=== PATIENT | female | born 1935 | race African-American/Black ===

== ENCOUNTER 2019-11-20 09:38 | Outpatient (CLI) | payer MEDICARE, BC, SELFPAY ==
--- NOTE | ~2019-11-20 | US_ITS ---
EXAMINATION: US thyroid DATE: 11/20/2019 10:22 INDICATION: Hyperthyroidism TECHNIQUE: Multiple ultrasound images of the thyroid were obtained. COMPARISON: 05/09/2017 FINDINGS: The right thyroid lobe measures 6.0 x 3.1 x 2.0 cm. The left thyroid lobe measures 7.5 x 3.5 x 2.9 c m. The thyroid isthmus measures 5 mm in thickness. There are multiple hypoechoic solid or predominant ly solid nodules which are wider than tall with well-defined margins and without suspicious echogenic foci (TI-RADS 4, moderately suspicious , FNA if >=1.5 cm, annual followup is >1 cm) which are scatte red throughout both thyroid lobes. These are generally decreased in size since the prior study the ma jority less than 1 cm in maximal diameter. The largest in the left thyroid lobe measures 1.8 x 1.3 x 0.9 cm. The next largest include a 1.4 cm nodule in the left thyroid lobe which may be more cystic th an solid and 1.2 cm and 1.1 cm nodules in the right thyroid lobe. There is coarsened echotexture an i ncreased vascular flow throughout the thyroid. IMPRESSION: 1. Multinodular goiter with multiple nodules which appear smaller than on the prior study with now on ly a single 1.8 cm TI RADS 4 nodules in the left thyroid meeting criteria for ultrasound-guided biops y. Reviewed, dictated and finalized at location A. IMPRESSION: 1. Multinodular goiter with multiple nodules which appear smaller than on the p rior study with now only a single 1.8 cm TI RADS 4 nodules in the left thyroid meeting criteria for ultrasound-guided biopsy.
== END 2019-11-20 09:39 | disposition home or self-care (01) ==
PROVIDERS: PCP Student in an Organized Health Care Education/Training Program; Visit Provider Student in an Organized Health Care Education/Training Program
DX: E05.90 Thyrotoxicosis, unspecified without thyrotoxic crisis or storm (principal); E04.2 Nontoxic multinodular goiter
CPT/HCPCS: 76536

== ENCOUNTER 2020-03-05 12:36 | Outpatient (CLI) | payer MEDICARE, BC, SELFPAY ==
--- NOTE | ~2020-03-05 | US_ITS ---
EXAMINATION: US venous doppler [facility] DATE: 03/05/2020 13:28 INDICATION: Lower limb swelling and pain, history of deep venous thrombosis TECHNIQUE: Mishra scale images without and with compression and Doppler images of the bilateral lower e xtremity veins were obtained. COMPARISON: 03/22/2018 FINDINGS: The right common femoral vein, profunda femoral vein, femoral vein, popliteal vein, peroneal trunk, p osterior tibial veins, and greater saphenous vein are patent. The left common femoral vein, profunda femoral vein, femoral vein, popliteal vein, peroneal trunk, po sterior tibial veins, and greater saphenous vein are patent. A 4.1 x 2.2 cm Galicia's cyst is noted in the left popliteal fossa. IMPRESSION: 1. Patent bilateral lower extremity veins. No evidence of deep venous thrombosis. 2. Left Galicia's cyst. Reviewed, dictated and finalized at location A. SQL DEVELOPER IMPRESSION: 1. Patent bilateral lower extremity veins. No evidence of deep venous thrombosi s. 2. Left Galicia's cyst.
== END 2020-03-05 12:37 | disposition home or self-care (01) ==
PROVIDERS: PCP Student in an Organized Health Care Education/Training Program; Visit Provider Student in an Organized Health Care Education/Training Program
DX: R22.42 Localized swelling, mass and lump, left lower limb (principal); M79.89 Other specified soft tissue disorders; M71.22 Synovial cyst of popliteal space [Baker], left knee
CPT/HCPCS: 93970

== ENCOUNTER 2020-04-30 10:51 | Emergency (ER) | payer MEDICARE, BC, SELFPAY ==
[2020-04-30] VITALS (7 sets, daily range): BP systolic 128–189; BP diastolic 50–108; PULSE 73–84; RESP 14–22; TEMP 36.9; O2SAT 96–100
--- NOTE | ~2020-04-30 | XR_ITS ---
EXAMINATION: XR chest 1V EXAM DATE: 04/30/2020 12:38 INDICATION: Shortness of breath. TECHNIQUE: Portable AP frontal chest x-ray was obtained. Comparison is made to prior examination from 03/18/2019. FINDINGS: The lungs are clear. There are no pleural effusions. Cardiac silhouette is prominent but magnified on this AP technique. There is no pneumothorax suspected. The bones and soft tissues are unremarkable. IMPRESSION: No acute cardiopulmonary findings. Reviewed, dictated and finalized at location B. NICAL PROPOSAL WRITER
--- NOTE | ~2020-04-30 | XR_ITS ---
EXAMINATION: XR hip LT 2V w AP pelvis EXAM DATE: 04/30/2020 12:38 INDICATION: No known recent injury provided at this time. Pain of the left hip. TECHNIQUE: Left hip frontal, 'frog leg' projections for interpretation. Frontal projection pelvis. There is no prior study for comparison. FINDINGS: Smooth left hip femoral head contour, no radiographic evidence of avascular necrosis. The re is moderate loss of the left hip joint space, mild to moderate bony productive changes. Most likel y primary osteoarthritis. There is right hip replacement. Pelvis is unremarkable. IMPRESSION: Moderate left hip arthritis. Reviewed, dictated and finalized at location B. OMER SUCCESS DIRECTOR
--- NOTE | ~2020-04-30 | CT_ITS ---
EXAMINATION: CT abdomen pelvis w con DATE: 04/30/2020 16:43 INDICATION: Lower abdominal pain TECHNIQUE: Computed tomography (CT) of the abdomen and pelvis was performed with 100 cc Omnipaque 350 intravenous contrast. The dose-length product was 1286.52 mGy-cm. Automated exposure control and ite rative reconstruction technique were employed. COMPARISON: None. FINDINGS: Cardiomegaly. No significant pleural or pericardial effusion. Moderate size hiatal hernia. There is atherosclerosis. There are calcified granulomas of the spleen. Tiny fat-containing lesion of the right hepatic lobe, likely benign. Gallbladder is present. The pancreas, adrenal glands and left kidney are unremarkable. There is a 1.8 cm right renal cyst. Colonic diverticulosis without evidence for diverticulitis. Gallbladder is present. Small fat-containing umbilical hernia. There is a right hip arthroplasty. Severe lumbar spondylosis. No acute osseous abnormality. No free air or free fluid. Normal appendix. No bowel obstruction. No abnormal pelvic masses or fluid collections. No evidence f or aortic aneurysm. No lymphadenopathy. IMPRESSION: 1. No acute abdominal abnormality. 2: Moderate size hiatal hernia. 3: Cardiomegaly. Reviewed, dictated and finalized at location A. IDENT AND CMO
--- NOTE | 2020-04-30 11:35 | ECG_ITS ---
Measurements Intervals [place] Rate: 71 P: 38 DE: 158 QRS: -22 QRSD: 91 T: 47 QT: 381 QTc: 417 Interpretive Statements SINUS RHYTHM POSSIBLE LEFT ATRIAL ENLARGEMENT BORDERLINE ECG Electronically Signed On 04-30-2020 14:26:42 OBSTETRICS TECHNICIAN by Terry Solomon D.O.
--- NOTE | 2020-04-30 11:36 | ED.GENADULT ---
HPI - General Adult General Chief complaint: Extremity Problem,Nontraumatic Stated complaint: Possible Blood Clots Time Seen by Provider: 04/30/20 11:27 Source: patient Mode of arrival: ambulatory Limitations: no limitations History of Present Illness HPI narrative: This is an 85 year old female who presents for evaluation of shortness of breath. She states she was walking slowly into her doctor's office because her knees were hurting. He noticed that she was working hard to breath so he referred her to ER. Patient states she has not felt well for few days. She complains of shortness of breath. She denies chest pain, cough or fever. She states she just does not feel well. She states she is walking slow because she does not feel well. she reports bilateral chronic ankle swelling that is not that bad today. She had an appointment with PCP today , and he referred her to ED for evaluation. She mentioned left groin pain to triage nurse but that is not the main reason she came to ER today. She reports groin pain has been present over the past week and she denies trauma. She denies melena or noticeable blood loss. Related Data Home Medications Medication Instructions Recorded Confirmed multivitamin 1 tablet PO DAILY 02/06/19 03/26/19 Allergies Allergy/AdvReac Type Severity Reaction Status Date / Time No Known Allergies Allergy Verified 04/30/20 11:34 Review of Systems Review of Systems: All systems reviewed & are unremarkable except as noted in HPI and below Constitutional: Constitutional: Denies chills, Reports fatigue and Denies fever(s) Cardiovascular: Cardiovascular: Denies chest pain Respiratory: Respiratory: Denies cough and Reports dyspnea Gastrointestinal: Gastrointestinal: Denies abdominal pain, Denies diarrhea, Denies nausea and Denies vomiting Neurologic: Denies headache(s), Denies focal weakness and Denies numbness PMFSH Past Medical History Medical History (Updated 04/30/20 @ 17:12 by Karen aM MD) Anemia Arthritis Dizziness DVT (deep venous thrombosis) H/O: HTN (hypertension) History of GI bleed Hx of fracture of hip PE (pulmonary thromboembolism) Surgical History Surgical History History of hip surgery History of hysterectomy History of hysterectomy History of total hip replacement Family History Family History Father Family history of transient ischemic attacks Patient's father is Cerebrovascular accident Mother Patient's mother is Other Family history of arthritis Hypertension Social History Social History (Updated 12/25/19 @ 09:49 by Pam Tim [facility]) Smoking status: Former smoker Smoking end date: 02/20/02 Alcohol intake: never Substance use: never Gender identity (if verbalized by the patient): Female Exam Narrative: Exam Narrative: GENERAL: Well-appearing, well-nourished, and in no acute distress. HEAD: Normocephalic, atraumatic EYES: PERRLA and EOMI, conjunctiva clear without discharge THROAT:Mucous membranes moist, Oropharynx normal without erythema, exudate, peritonsillar swelling or fluctuance NECK: Supple, without lymphadenopathy or mass RESPIRATORY: No respiratory distress, Airway patent, Respirations non-labored, Clear to auscultation without rales, rhonchi or wheeze HEART: Regular rate and rhythm. No murmur heard. Normal peripheral pulses. ABDOMEN: Soft,LLQ tenderness, nondistended, normal active bowel sounds. No masses. No rebound or guarding, No organomegaly. EXTREMITIES: No edema, normal strength with full range of motion. SKIN: Warm, dry, normal color without rash NEURO: Alert and oriented x3. CN 2-12 grossly intact. No focal deficits. PSYCH: Normal mood and affect. Course Reevaluation(s) Reevaluation #1: I reviewed with patient labs and imaging. Her d di
[2020-04-30 12:10] LABS: Basophils Percent Auto 0.3 % (0.2-1.2); Eosinophils Absolute Auto 0.1 K/mm3 (0-0.3); Eosinophils Percent Auto 1.9 % (0-4.4); Hematocrit 32.3 % (37.0-47.0); Hemoglobin 10.2 g/dL (12.0-15.0); Immature Granulocyte Absolute 0.01 K/mm3 (0.00-0.031); Immature Granulocyte Percent A 0.2 % (0-0.5); Lymphocytes Absolute Auto 2.01 K/mm3 (0.9-3.2); Lymphocytes Percent Auto 32.4 % (18.3-44.2); Mean Corpuscular HGB Conc 31.6 g/dl (32-36); Mean Corpuscular Hemoglobin 27.9 pg (26-34); Mean Corpuscular Volume 88.5 fl (80-100); Mean Platelet Volume 10.9 fl (7.4-10.4); Monocytes Absolute Auto 0.9 K/mm3 (0.1-0.6); Monocytes Percent Auto 15.2 % (2.6-8.5); Neutrophils Absolute Auto 3.1 K/mm3 (1.3-6.7); Platelet Count Result 250 k/mm3 (150-375); Red Blood Count 3.65 M/mm3 (4.2-5.4); Red Cell Distribution Width 14.3 % (11.5-14.5); White Blood Count 6.2 K/mm3 (4.5-10.0)
--- NOTE | 2020-04-30 12:19 | PC.NURSE ---
Patient unable to urinate at this time, declines straight cath and reports that she only drank tea today really early this morning
[2020-04-30 12:23] LABS: INR 1.1; Prothrombin Time 14.4 Seconds (11.1-14.7)
[2020-04-30 12:24] LABS: Partial Thromboplastin Time 25.8 SECONDS (22.3-36.8)
--- NOTE | 2020-04-30 14:00 | PC.NURSE ---
patient's green top redrawn and sent to lab.
[2020-04-30 14:30] LABS: Add Urine Microscopic? YES; Appearance Urine Cloudy (Clear); Bacteria Urine Trace /hpf; Bilirubin Urine Negative (Negative); Blood Urine Negative (Negative); Color Urine Yellow (Yellow); Glucose Urine UA Negative (Negative); Hyaline Casts Urine 15-19 /lpf; Ketones Urine Negative (Negative); Leukocyte Esterase Ur 2+ LEU/UL (Negative); Mucus Urine Rare /lpf; Nitrate Urine Negative (Negative); Protein Urine Negative (Negative); Specific Grav Ur 1.014 (1.001-1.035); Squamous Epithelial Cell Urine Many /hpf (Few); Urobilinogen Urine Negative mg/dL (<2.0)
--- NOTE | 2020-04-30 14:30 | PC.NURSE ---
Patient's green top redrawn due to hemolyzed sample, phlebotomy called to draw blood
--- NOTE | 2020-04-30 14:45 | PC.NURSE ---
Phlebotomy at bedside to draw green top due to multiple past hemolyzed samples .
[2020-04-30 15:46] LABS: Alanine Aminotransferase 7 U/L (4-35); Albumin Level 3.4 g/dL (3.5-5.1); Alkaline Phosphatase 96 U/L (38-126); Anion Gap 4 mmol/L (8-16); Aspartate Amino Transferase 20 U/L (14-36); Bilirubin,Total 0.2 mg/dL (0.2-1.3); Blood Urea Nitrogen 21 mg/dL (7-17); Calcium 9.3 mg/dL (8.4-10.2); Carbon Dioxide 29 mmol/L (22-30); Chloride 106 mmol/L (98-107); Estimated CRCL calculation 42 ml/min; Estimated Glomerular Filt Rate 57; Glucose 94 mg/dL (65-105); Magnesium 1.6 mg/dL (1.6-2.3); Potassium 4.1 mmol/L (3.4-5.0); Sodium 139 mmol/L (137-145)
[2020-04-30 16:04] LABS: NT Pro B Type Natriuretic Pept 319 PG/ML (5-100); Troponin I < 0.012 ng/mL (0.000-0.034)
== END 2020-04-30 17:22 | disposition home or self-care (01) ==
PROVIDERS: Emergency Provider General Practice; PCP Student in an Organized Health Care Education/Training Program
DX: R53.1 Weakness (principal); R10.32 Left lower quadrant pain; N39.0 Urinary tract infection, site not specified; I10 Essential (primary) hypertension; D64.9 Anemia, unspecified; M16.12 Unilateral primary osteoarthritis, left hip; Z96.641 Presence of right artificial hip joint; Z86.73 Personal history of transient ischemic attack (TIA), and cerebral infarction without residual deficits; Z86.711 Personal history of pulmonary embolism; Z87.891 Personal history of nicotine dependence; Z79.01 Long term (current) use of anticoagulants; K44.9 Diaphragmatic hernia without obstruction or gangrene; I51.7 Cardiomegaly; R94.31 Abnormal electrocardiogram [ECG] [EKG]
CPT/HCPCS: 36415; 71045; 73502; 74177; 80053; 81001; 83735; 83880; 84484; 85025; 85380; 85610; 85730; 93005; 99284; Q9967

== ENCOUNTER 2020-06-16 13:15 | Outpatient (CLI) | payer MEDICARE, BC, SELFPAY ==
[2020-06-16 16:17] LABS: Basophils Percent Auto 0.2 % (0.2-1.2); Eosinophils Absolute Auto 0.1 K/mm3 (0-0.3); Eosinophils Percent Auto 1.1 % (0-4.4); Hematocrit 34.5 % (37.0-47.0); Hemoglobin 10.7 g/dL (12.0-15.0); Immature Granulocyte Absolute 0.02 K/mm3 (0.00-0.031); Immature Granulocyte Percent A 0.2 % (0-0.5); Lymphocytes Absolute Auto 2.82 K/mm3 (0.9-3.2); Lymphocytes Percent Auto 29.7 % (18.3-44.2); Mean Corpuscular Hemoglobin 26.8 pg (26-34); Mean Corpuscular Volume 86.3 fl (80-100); Monocytes Absolute Auto 1.5 K/mm3 (0.1-0.6); Monocytes Percent Auto 16.2 % (2.6-8.5); Neutrophils Percent Auto 52.6 % (45.5-73.1); Platelet Count Result 305 k/mm3 (150-375); Red Cell Distribution Width 14.2 % (11.5-14.5); White Blood Count 9.5 K/mm3 (4.5-10.0)
[2020-06-16 16:23] LABS: Alanine Aminotransferase 8 U/L (4-35); Albumin Level 3.6 g/dL (3.5-5.1); Alkaline Phosphatase 97 U/L (38-126); Anion Gap 4 mmol/L (8-16); Aspartate Amino Transferase 17 U/L (14-36); Bilirubin,Total 0.4 mg/dL (0.2-1.3); Blood Urea Nitrogen 28 mg/dL (7-17); Calcium 9.5 mg/dL (8.4-10.2); Carbon Dioxide 32 mmol/L (22-30); Chloride 102 mmol/L (98-107); Cholesterol 160 mg/dL (0-200); Estimated Glomerular Filt Rate 57; Glucose 101 mg/dL (65-105); HDL Direct 94 mg/dL; Potassium 4.3 mmol/L (3.4-5.0); Sodium 138 mmol/L (137-145); Triglycerides 87 mg/dL (<150); Uric Acid 6.5 mg/dL (2.5-7.5)
[2020-06-16 16:34] LABS: LDL Cholesterol Direct 51 mg/dL
[2020-06-16 16:44] LABS: Hemoglobin A1C 6.1 % (<5.7)
[2020-06-16 16:54] LABS: Thyroid Stimulating Hormone Reflex < 0.015 uIU/mL (0.465-4.68)
[2020-06-16 17:35] LABS: Free T4 Free Thyroxine Reflex 1.42 ng/dL (0.78-2.19)
[2020-06-16 19:25] LABS: Total Triiodothyronine (T3) 1.29 NG/ML (0.97-1.69)
== END 2020-06-16 13:16 | disposition home or self-care (01) ==
LOC: ANHWCLAB 13:31
PROVIDERS: PCP Student in an Organized Health Care Education/Training Program; Visit Provider Student in an Organized Health Care Education/Training Program
DX: R73.09 Other abnormal glucose (principal); I50.9 Heart failure, unspecified; Z13.0 Encounter for screening for diseases of the blood and blood-forming organs and certain disorders involving the immune mechanism; Z13.220 Encounter for screening for lipoid disorders; Z13.228 Encounter for screening for other metabolic disorders; Z13.29 Encounter for screening for other suspected endocrine disorder
CPT/HCPCS: 36415; 80053; 80061; 83036; 84439; 84443; 84480; 84550; 85025

== ENCOUNTER 2020-07-02 12:53 | Emergency (ER) | payer MEDICARE, BC, SELFPAY ==
--- NOTE | ~2020-07-02 | XR_ITS ---
EXAMINATION: XR knee LT 3V DATE: 07/02/2020 14:02 INDICATION: Left knee injury. TECHNIQUE: 3 views of left knee were obtained. COMPARISON: Left knee radiographs 03/11/2011 FINDINGS: There is varus angulation at the knee. No fracture. There is severe osteoarthritis of media l and patellofemoral compartments and moderate osteoarthritis of lateral compartment. No knee joint e ffusion. IMPRESSION: 1. Severe left knee osteoarthritis. Reviewed, dictated and finalized at location B.
--- NOTE | ~2020-07-02 | CT_ITS ---
EXAMINATION: CT brain wo con DATE: 07/02/2020 14:15 INDICATION: Fall. Head injury. No loss of consciousness. TECHNIQUE: Computed tomography (CT) of the head was performed without intravenous contrast. The mA wa s adjusted according to patient size. Iterative reconstruction technique was employed. Exam dose: 60 5.33 mGy-cm total exam DLP. COMPARISON: 03/18/2019 CT brain FINDINGS: No intracranial mass lesion or hemorrhage or cerebrovascular accident is detected. No midli ne shift or mass effect effect. No subdural or epidural hematoma. Bilateral carotid siphon internal carotid artery calcifications. Nonspecific diminished attenuation o f the subcortical and periventricular cerebral white matter, likely due to chronic small vessel ische giuliano changes. There is left frontal cephalohematoma. No intracranial coup or contrecoup injury is detected. No fracture or bone destruction of the cranial vault. IMPRESSION: Left frontal cephalohematoma; no skull fracture or acute intracranial finding Cerebral atherosclerosis and chronic small vessel ischemic changes of the cerebral white matter Reviewed, dictated and finalized at Location A. Reviewed, dictated and finalized at location A. IMPRESSION: Left frontal cephalohematoma; no skull fracture or acute intracran ial finding Cerebral atherosclerosis and chronic small vessel ischemic changes of the cereb ral white matter
--- NOTE | ~2020-07-02 | CT_ITS ---
EXAMINATION: CT cervical spine wo con DATE: 07/02/2020 14:16 INDICATION: Head injury post fall TECHNIQUE: Computed tomography (CT) of the cervical spine was performed without intravenous contrast. Automated exposure control and iterative reconstruction technique were employed. The dose-length pro duct was 439.55 mGy-cm. COMPARISON: None FINDINGS: 1 mm retrolisthesis C2 on C3 and 2 mm retrolisthesis C3 on C4. Severe osteoarthritis at the atlantoax ial articulation with calcified pannus surrounding the dens. Vertebral body heights are normal. No fr acture. Moderate disc height loss at T2 C3, C3-C4, C5-C6 and C6-C7 and mild disc height loss at C4-C5 . Schmorl's nodes along both sides of the C3-C4 disc space. Goiter. Cervical soft tissues are otherwi se unremarkable. Visualized apices of lungs are clear. The following disc levels are specifically dis cussed: C2-C3: Disc is mildly bulging. There is moderate bilateral uncovertebral joint osteoarthritis. There is mild left and severe right facet joint osteoarthritis. There is mild left neural foraminal stenosi s. There is mild central canal stenosis. C3-C4: Posterior disc osteophyte complex. There is severe bilateral uncovertebral joint osteoarthriti s. There is moderate right and severe left facet joint osteoarthritis. There is mild to moderate left neural foraminal stenosis. There is mild to moderate central canal stenosis measuring 8 mm AP in the mid sagittal plane. C4-C5: Small central disc protrusion. There is mild bilateral uncovertebral joint osteoarthritis. The re is severe bilateral facet joint osteoarthritis. There is mild left neural foraminal stenosis. Ther e is minimal central canal stenosis. C5-C6: Moderate hypertrophic changes with fusion across the bilateral uncovertebral joints as well as bridging posterior osteophytes. There is also fusion across the bilateral facet joints with moderate hypertrophic changes. There is mild bilateral neural foraminal stenosis. There is mild central canal stenosis. C6-C7: Posterior disc osteophyte complex is present. There is moderate bilateral uncovertebral joint osteoarthritis. There is severe bilateral facet joint osteoarthritis. There is mild bilateral neural foraminal stenosis. There is mild central canal stenosis. C7-T1: The disc does not extend beyond the endplate margin. There is minimal bilateral uncovertebral joint osteoarthritis. There is mild right and moderate left facet joint osteoarthritis. There is no n eural foraminal stenosis. There is no central canal stenosis. IMPRESSION: 1. Moderate to severe cervical spondylosis. No acute osseous abnormality. Reviewed, dictated and finalized at location A.
--- NOTE | ~2020-07-02 | XR_ITS ---
EXAMINATION: XR knee RT 3V DATE: 07/02/2020 14:02 INDICATION: Right knee injury. TECHNIQUE: 3 views of right knee were obtained. COMPARISON: Right knee radiographs 03/11/2011 FINDINGS: Bone alignment is normal. No fracture. There is severe osteoarthritis of patellofemoral com partment and moderate osteoarthritis of medial and lateral compartments. No knee joint effusion. IMPRESSION: 1. Severe right knee osteoarthritis. Reviewed, dictated and finalized at location B.
[2020-07-02 13:01] VITALS: BP 158/63; PULSE 80; RESP 16; TEMP 36.8; O2SAT 97
--- NOTE | 2020-07-02 15:49 | ED.FALL ---
HPI - Fall General Chief Complaint: Fall Stated Complaint: FALL HI Time Seen by Provider: 07/02/20 13:07 Source: patient Mode of arrival: ambulatory Limitations: no limitations History of Present Illness HPI Narrative: Patient is an 85 year old female who reports trip and fall after leaving doctor's office. Patient reports dropping papers and attempting to stop them with her foot, she reports reaching town and losing balance. She reports falling hitting head on concrete and bilateral knees. Hematoma noted to left eyebrow. Bruising to bilateral knees per patient. Patient is on Eliquis. She denies LOC, denies dizziness or other complaints prior to fall. complaint: fall Related Data Home Medications Medication Instructions Recorded Confirmed multivitamin 1 tablet PO DAILY 02/06/19 03/26/19 Allergies Allergy/AdvReac Type Severity Reaction Status Date / Time No Known Allergies Allergy Verified 07/02/20 13:04 Review of Systems Review of Systems: Narrative: CONSTITUTIONAL: Denies fever, chills, or sweats. EYES: Denies visual changes, redness, or discharge. ENT: Denies rhinorrhea, congestion, sore throat, or otalgia. CARDIOVASCULAR: Denies chest pain, palpitations, or edema. RESPIRATORY: Denies cough or dyspnea. GASTROINTESTINAL: Denies abdominal pain, nausea, vomiting, or diarrhea. GENITOURINARY: Denies dysuria or hematuria. SKIN: Reports hematoma to left forehead MUSCULOSKELETAL: Reports bilateral knee pain NEUROLOGIC: Denies headache, numbness, dizziness, or weakness. PSYCHIATRIC: Denies anxiety or depression. [facility] Past Medical History Medical History (Updated 07/02/20 @ 16:07 by ELIZABETH Cisneros) Anemia Arthritis Dizziness DVT (deep venous thrombosis) H/O: HTN (hypertension) History of GI bleed Hx of fracture of hip PE (pulmonary thromboembolism) Surgical History Surgical History History of hip surgery History of hysterectomy History of hysterectomy History of total hip replacement Family History Family History Father Family history of transient ischemic attacks Patient's father is Cerebrovascular accident Mother Patient's mother is Other Family history of arthritis Hypertension Social History Social History Smoking status: Former smoker Smoking end date: 02/20/02 Alcohol intake: never Substance use: never Gender identity (if verbalized by the patient): Female Comments At the time of signature, I have reviewed and agree with nursing past medical, surgical, social, and family history unless otherwise noted. Please see nursing chart for further information. There is no relevant family history pertinent to the presenting complaint. Exam Narrative: Exam Narrative: GENERAL: Well-appearing, well-nourished, and in no acute distress. HEAD: Normocephalic, atraumatic. EYES: EOMI. No redness or drainage. Conjunctiva are normal. ENT: Mucous membranes pink and moist. Nares clear. No rhinorrhea. NECK: AROM. Supple. No lymphadenopathy. No cervical tenderness with palpation. CHEST: No respiratory distress. Clear to auscultation. HEART: Regular rate and rhythm. No murmur appreciated. Normal peripheral pulses. EXTREMITIES: Ecchymosis, edema and tenderness with palpation noted to bilateral knees SKIN: Warm, dry, no rash. NEURO: No focal deficits. Alert and oriented x3. Gait steady. PSYCH: Normal affect. No signs of depression or anxiety. Course Vital Signs Vital signs: Vital Signs Temperature 36.8 C 07/02/20 13:01 Pulse Rate 80 07/02/20 13:01 Respiratory Rate 16 07/02/20 13:01 Blood Pressure 158/63 H 07/02/20 13:01 Pulse Oximetry 97 07/02/20 13:01 Temperature 36.8 C 07/02/20 13:01 Pulse Rate 80 07/02/20 13:01 Respiratory Rate 16 07/02/20 13:01 Bloo
[2020-07-02] MEDS: TETANUS,DIPHTHERIA,AC PERTUSSIS ADULT (0.5 ML) BOOSTRIX IM (16:16)
[2020-07-02 16:17] VITALS: BP 143/87; PULSE 84; RESP 23; O2SAT 100
== END 2020-07-02 16:25 | disposition home or self-care (01) ==
LOC: ANHED 13:32
PROVIDERS: Emergency Provider Nurse Practitioner; PCP Student in an Organized Health Care Education/Training Program
DX: S00.12XA Contusion of left eyelid and periocular area, initial encounter (principal); S80.02XA Contusion of left knee, initial encounter; S80.01XA Contusion of right knee, initial encounter; Z23 Encounter for immunization; I10 Essential (primary) hypertension; Z79.01 Long term (current) use of anticoagulants; Z86.718 Personal history of other venous thrombosis and embolism; Z86.711 Personal history of pulmonary embolism; Z86.2 Personal history of diseases of the blood and blood-forming organs and certain disorders involving the immune mechanism; Z96.649 Presence of unspecified artificial hip joint; Z87.891 Personal history of nicotine dependence; M17.0 Bilateral primary osteoarthritis of knee; I67.2 Cerebral atherosclerosis; M47.812 Spondylosis without myelopathy or radiculopathy, cervical region; W01.0XXA Fall on same level from slipping, tripping and stumbling without subsequent striking against object, initial encounter
CPT/HCPCS: 70450; 72125; 73562; 90471; 90715; 99284

== ENCOUNTER 2021-03-04 10:05 | Outpatient (CLI) | payer MEDICARE, BC, SELFPAY ==
--- NOTE | ~2021-03-04 | US_ITS ---
EXAMINATION: US thyroid EXAM DATE: 03/04/2021 10:55 INDICATION: Thyroid nodule. TECHNIQUE: Multiple grayscale and Doppler images of the thyroid were obtained (by a technologist who performed the scan) and subsequently reviewed. Individual nodules and recommendations may be reporte d in accordance with TI-RADS system as designated by the 2017 ACR White Paper TI-RADS committee. Comp arison is made to prior examination from 11/20/2019, 05/09/2017. FINDINGS: The right thyroid lobe measures 5.6 x 2.1 x 1.8 cm, the left measuring 5.7 x 2.8 x 2.4 cm. Mildly het erogeneous thyroid echogenicity with multiple small scattered thyroid nodules. Isthmus measures 1.3 c m in thickness. Largest predominantly solid right thyroid lobe nodule category TR 4, measuring up to 1.1 cm (previous ly 1.2 cm in 2020). Largest left-sided category TR 4 nodule measuring up to 1.4 cm (previously 1.3 cm in 2019). This category is considered for biopsy of size reaches 1.5 cm. Comparing to an ultrasound from 2018, some of these nodules have actually decreased in size. IMPRESSION: Stable multinodular goiter without enlarging or suspicious nodule. Return to clinical fol low-up and if additional palpable abnormality develops in 2 years time consider repeat ultrasound. Reviewed, dictated and finalized at location A. UE AND GROOVE MACHINE OPERATOR IMPRESSION: Stable multinodular goiter without enlarging or suspicious nodule. Return to clinical follow-up and if additional palpable abnormality develops in 2 years time consider repeat ultrasound.
== END 2021-03-04 10:06 | disposition home or self-care (01) ==
LOC: ANHIMG 10:12
PROVIDERS: PCP Student in an Organized Health Care Education/Training Program; Visit Provider Student in an Organized Health Care Education/Training Program
DX: E04.2 Nontoxic multinodular goiter (principal)
CPT/HCPCS: 76536

== ENCOUNTER 2021-03-08 12:05 | Outpatient (CLI) | payer MEDICARE, BC, SELFPAY ==
[2021-03-08 13:46] LABS: Basophils Percent Auto 0.4 % (0.2-1.2); Eosinophils Absolute Auto 0.2 K/mm3 (0-0.3); Eosinophils Percent Auto 2.8 % (0-4.4); Hematocrit 33.4 % (37.0-47.0); Hemoglobin 10.2 g/dL (12.0-15.0); Immature Granulocyte Absolute 0.01 K/mm3 (0.00-0.031); Immature Granulocyte Percent A 0.1 % (0-0.5); Lymphocytes Percent Auto 33.8 % (18.3-44.2); Mean Corpuscular HGB Conc 30.5 g/dl (32-36); Mean Corpuscular Hemoglobin 26.6 pg (26-34); Monocytes Absolute Auto 1.3 K/mm3 (0.1-0.6); Monocytes Percent Auto 18.4 % (2.6-8.5); Neutrophils Percent Auto 44.5 % (45.5-73.1); Platelet Count Result 281 k/mm3 (150-375); Red Blood Count 3.84 M/mm3 (4.2-5.4); Red Cell Distribution Width 14.5 % (11.5-14.5); White Blood Count 6.8 K/mm3 (4.5-10.0)
[2021-03-08 13:51] LABS: Iron 46 ug/dL (37-170)
[2021-03-08 14:02] LABS: Percent Iron Saturation 11 % (20-50)
== END 2021-03-08 12:06 | disposition home or self-care (01) ==
LOC: ANHWCLAB 12:09
PROVIDERS: PCP Student in an Organized Health Care Education/Training Program; Visit Provider Student in an Organized Health Care Education/Training Program
DX: D50.9 Iron deficiency anemia, unspecified (principal)
CPT/HCPCS: 36415; 83540; 83550; 85025

== ENCOUNTER 2021-09-07 10:30 | Outpatient (CLI) | payer MEDICARE, BC, SELFPAY ==
[2021-09-07 13:12] LABS: Basophils Percent Auto 0.4 % (0.2-1.2); Eosinophils Absolute Auto 0.1 K/mm3 (0-0.3); Eosinophils Percent Auto 2.2 % (0-4.4); Hematocrit 34.1 % (37.0-47.0); Hemoglobin 10.3 g/dL (12.0-15.0); Immature Granulocyte Absolute 0.02 K/mm3 (0.00-0.031); Immature Granulocyte Percent A 0.4 % (0-0.5); Immature Reticulocyte Fraction 13.5 % (3.0-15.9); Lymphocytes Absolute Auto 1.87 K/mm3 (0.9-3.2); Lymphocytes Percent Auto 33.7 % (18.3-44.2); Mean Corpuscular HGB Conc 30.2 g/dl (32-36); Mean Corpuscular Hemoglobin 26.2 pg (26-34); Mean Corpuscular Volume 86.8 fl (80-100); Monocytes Absolute Auto 0.9 K/mm3 (0.1-0.6); Monocytes Percent Auto 16.4 % (2.6-8.5); Neutrophils Absolute Auto 2.6 K/mm3 (1.3-6.7); Neutrophils Percent Auto 46.9 % (45.5-73.1); Platelet Count Result 226 k/mm3 (150-375); Red Blood Count 3.93 M/mm3 (4.2-5.4); Red Cell Distribution Width 15.1 % (11.5-14.5); Reticulocyte Hemoglobin Conten 29.2 pg (28.2-35.7); Reticulocyte Percent 1.23 % (0.7-4.3); Reticulocytes Absolute 0.05 B/L (32.2-175.7); White Blood Count 5.6 K/mm3 (4.5-10.0)
[2021-09-07 19:20] LABS: Hemoglobin A1C 5.7 % (<5.7)
== END 2021-09-07 10:31 | disposition home or self-care (01) ==
LOC: ANHWCLAB 10:36
PROVIDERS: PCP Student in an Organized Health Care Education/Training Program; Visit Provider Student in an Organized Health Care Education/Training Program
DX: D50.9 Iron deficiency anemia, unspecified (principal); R73.03 Prediabetes
CPT/HCPCS: 36415; 83036; 85025; 85046

== ENCOUNTER 2022-01-04 10:37 | Outpatient (CLI) | payer MEDICARE, BC, SELFPAY ==
[2022-01-04 13:40] LABS: Free T4 Free Thyroxine 1.03 ng/mL (0.78-2.19)
[2022-01-05 17:27] LABS: Thyroid Stimulating Hormone 0.388 uIU/mL (0.465-4.680)
[2022-01-06 14:01] LABS: Thyroid Stimulating Immunoglob <89 % baseline (<140)
[2022-01-09 18:11] LABS: Triiodothyronine T3 Free 2.8 pg/mL (2.3-4.2)
== END 2022-01-04 10:38 | disposition home or self-care (01) ==
LOC: ANHWCLAB 10:39
PROVIDERS: PCP Student in an Organized Health Care Education/Training Program; Visit Provider Internal Medicine Endocrinology, Diabetes & Metabolism
DX: E04.2 Nontoxic multinodular goiter (principal); E05.90 Thyrotoxicosis, unspecified without thyrotoxic crisis or storm
CPT/HCPCS: 36415; 84439; 84443; 84445; 84481

== ENCOUNTER 2022-01-17 11:29 | Outpatient (CLI) | payer MEDICARE, BC, SELFPAY ==
--- NOTE | ~2022-01-17 | US_ITS ---
US thyroid INDICATION: Nontoxic multinodular goiter TECHNIQUE: Real-time sonographic images of the thyroid gland were obtained. COMPARISON: Ultrasound dated 03/04/2021 and 05/09/2017 FINDINGS: The right thyroid lobe measures 6.3 x 3 x 2.6 cm. The left thyroid lobe measures 5.7 x 2.8 x 2.8 cm. Thyroid gland is diffusely heterogeneous containing multiple solid and cystic masses throu ghout both lobes. Largest just dominant mass in the right lobe measures 11 x 7 x 8 mm and is mixed so lid and cystic, predominantly hypoechoic, wider than tall, smoothly marginated without internal echog enic foci, TR 3. There are multiple cystic and solid masses of the left lobe which are confluent with ill-defined margins making measurements difficult. No significant change to overall appearance of th e left thyroid masses allowing for differences of technique. No discrete mass in the left lobe which meet sonographic criteria for biopsy. IMPRESSION: 1. Stable multinodular goiter without developing abnormal thyroid mass. Common follow-up ultrasound in 12 months. Reviewed, dictated and finalized at location A. L CLEANER
== END 2022-01-17 11:30 | disposition home or self-care (01) ==
PROVIDERS: PCP Student in an Organized Health Care Education/Training Program; Visit Provider Internal Medicine Endocrinology, Diabetes & Metabolism
DX: E04.2 Nontoxic multinodular goiter (principal)
CPT/HCPCS: 76536

== ENCOUNTER 2022-12-08 13:58 | Outpatient (CLI) | payer MEDICARE, BC, SELFPAY ==
[2022-12-08 19:09] LABS: Basophils Percent Auto 0.3 % (0.2-1.2); Eosinophils Absolute Auto 0.2 K/mm3 (0-0.3); Eosinophils Percent Auto 2.6 % (0-4.4); Hemoglobin 11.7 g/dL (12.0-15.0); Immature Granulocyte Absolute 0.01 K/mm3 (0.00-0.031); Immature Granulocyte Percent A 0.2 % (0-0.5); Lymphocytes Absolute Auto 1.84 K/mm3 (0.9-3.2); Lymphocytes Percent Auto 30.5 % (18.3-44.2); Mean Corpuscular HGB Conc 30.8 g/dl (32-36); Mean Corpuscular Hemoglobin 28.3 pg (26-34); Mean Corpuscular Volume 91.8 fl (80-100); Mean Platelet Volume 11.4 fl (7.4-10.4); Monocytes Absolute Auto 1.1 K/mm3 (0.1-0.6); Monocytes Percent Auto 17.4 % (2.6-8.5); Platelet Count Result 224 k/mm3 (150-375); Red Blood Count 4.14 M/mm3 (4.2-5.4); Red Cell Distribution Width 14.4 % (11.5-14.5)
[2022-12-08 19:22] LABS: Creatinine Urine 275.4 mg/dL
[2022-12-08 19:27] LABS: MALB Creatinine Ratio 5.1 mg/g (0-30); Microalbumin Urine Random 14.1 mg/L (0-16.7)
[2022-12-08 19:30] LABS: Alanine Aminotransferase 10 U/L (6-35); Albumin Level 4.1 g/dL (3.5-5.1); Alkaline Phosphatase 104 U/L (38-126); Anion Gap 3 mmol/L (8-16); Aspartate Amino Transferase 31 U/L (14-36); Bilirubin,Total 0.7 mg/dL (0.2-1.3); Blood Urea Nitrogen 25 mg/dL (7-17); Carbon Dioxide 33 mmol/L (22-30); Chloride 101 mmol/L (98-107); Cholesterol 174 mg/dL (0-200); Estimated Glomerular Filt Rate 43; Glucose 96 mg/dL (65-110); HDL Direct 76 mg/dL; Potassium 4.2 mmol/L (3.4-5.0); Sodium 137 mmol/L (137-145); Triglycerides 86 mg/dL (<150)
[2022-12-08 20:26] LABS: Iron 71 ug/dL (37-170)
[2022-12-08 20:36] LABS: Percent Iron Saturation 19 % (20-50)
[2022-12-08 20:39] LABS: Folic Acid 16.5 ng/mL (2.76->20)
[2022-12-08 21:37] LABS: LDL Cholesterol Direct 64 mg/dL
[2022-12-08 22:29] LABS: Hemoglobin A1C 5.7 % (<5.7)
== END 2022-12-08 13:59 | disposition home or self-care (01) ==
PROVIDERS: PCP Emergency Medicine; Visit Provider Emergency Medicine
DX: E55.9 Vitamin D deficiency, unspecified (principal); D64.9 Anemia, unspecified; E11.42 Type 2 diabetes mellitus with diabetic polyneuropathy; R53.83 Other fatigue
CPT/HCPCS: 36415; 80053; 80061; 82043; 82306; 82607; 82728; 82746; 83036; 83540; 83550; 85025

== ENCOUNTER → 2023-01-10 09:50 | Outpatient (CLI) | payer MEDICARE, BC, SELFPAY ==
--- NOTE | ~2023-01-10 | US_ITS ---
US renal BI 01/10/2023 10:12 Procedure: Realtime transabdominal ultrasound of the kidneys and bladder. Indication: Chronic kidney disease stage III B Comparison: No prior studies for comparison. Findings: Renal echotexture is normal bilaterally without hydronephrosis, contour deforming mass or r enal calculus. There is right renal cyst measuring 1.8 cm. The right kidney measures 7.2 cm and left kidney measures 8.1 cm. Bladder within normal limits. Impression: 1: Right renal cyst measuring 1.8 cm. Reviewed, dictated and finalized at location L. R RESOURCE SPECIALIST Impression: 1: Right renal cyst measuring 1.8 cm.
== END ==
PROVIDERS: PCP Emergency Medicine; Visit Provider Internal Medicine Nephrology
DX: I12.9 Hypertensive chronic kidney disease with stage 1 through stage 4 chronic kidney disease, or unspecified chronic kidney disease (principal); N18.32 Chronic kidney disease, stage 3b; N28.1 Cyst of kidney, acquired
CPT/HCPCS: 76775

== ENCOUNTER 2023-01-30 13:30 | Emergency (ER) | payer MEDICARE, BC, SELFPAY ==
--- NOTE | ~2023-01-30 | XR_ITS ---
EXAMINATION: XR chest 2V DATE: 01/30/2023 14:15 INDICATION: Cough and weakness. COVID-19 positive. TECHNIQUE: Frontal and lateral views of the chest were obtained. COMPARISON: Chest single view 04/30/2020, CT abdomen and pelvis 04/30/2020 FINDINGS: The lung volumes are normal. There are chronic reticular opacities in the lower lung zones. No pleural effusion or pneumothorax. Cardiomegaly is noted. IMPRESSION: 1. Stable mild chronic lung disease. 2. Cardiomegaly. Reviewed, dictated and finalized at location [facility]
[2023-01-30 13:48] VITALS: BP 159/66; PULSE 84; RESP 14; TEMP 36.3; O2SAT 99
--- NOTE | 2023-01-30 13:52 | ED.URI ---
HPI - URI/Sore Throat General Chief Complaint: Upper Respiratory Infection Stated Complaint: Flu symptoms Source: patient, RN notes reviewed and old records reviewed Mode of arrival: ambulatory Limitations: no limitations History of Present Illness HPI Narrative: 88-YEAR-OLD FEMALE PRESENTS TO [facility] WITH COMPLAINT OF PRODUCTIVE COUGH WITH SLIGHT CONGESTIONFOR 2 WEEKS. PATIENT STATES COUGH STARTED RIGHT AFTER GETTING COVID AND FLU VACCINES. PATIENT DENIES ANY OTHER COMPLAINTS. PATIENT STATES COUGHING UP THICK YELLOW PHLEGM MD elicited complaint: cough Onset (ago): week(s) (2) Related Data Home Medications Medication Instructions Recorded Confirmed multivitamin 1 tablet PO DAILY 02/06/19 12/22/22 brinzolamide 1 %-brimonidine 0.2 % drp ophthalmic (eye) 12/08/22 12/22/22 eye drops,suspension (Simbrinza) Allergies Allergy/AdvReac Type Severity Reaction Status Date / Time No Known Allergies Allergy Verified 01/30/23 13:44 Review of Systems Constitutional: Constitutional: Reports no additional constitutional complaints, Denies body ache(s), Denies chills and Denies fever(s) Eyes: Eyes: Reports no additional eye complaints ENT: Reports system reviewed and no additional complaints, except as documented and Reports nasal congestion Cardiovascular: Cardiovascular: Reports no additional cardiovascular complaints Respiratory: Respiratory: Reports as per HPI, Reports chest congestion, Reports cough, Denies pain with cough and Denies dyspnea Neurologic: Reports system reviewed and no additional complaints, except as documented PMFSH Past Medical History Medical History (Updated 01/30/23 @ 13:56 by Lucinda Burris APRN) Anemia Arthritis Dizziness DVT (deep venous thrombosis) H/O: HTN (hypertension) History of GI bleed Hx of fracture of hip PE (pulmonary thromboembolism) Surgical History Surgical History History of hip surgery History of hysterectomy History of hysterectomy History of total hip replacement Family History Family History Father Family history of transient ischemic attacks Patient's father is Cerebrovascular accident Mother Patient's mother is Other Family history of arthritis Hypertension Social History Social History (Updated 12/22/22 @ 12:14 by Eden Michael MA) Smoking status: Former smoker Smoking end date: 02/20/02 Alcohol intake: never Substance use: never Lack of Transportation: No Lack of Food: Never True Current Housing: I Do Not Have Housing Concerned About Future Housing: No Difficulty Paying Gas/Electric Bills: No Difficulty Paying for Meds: No Currently Unemployed: No Education: High School Diploma/GED Difficulty w/ Childcare or Family Care: No Gender identity (if verbalized by the patient): Female Comments At the time of my signature, I reviewed and agree with the nursing past medical, surgical, social, and family history. There is no relevant family history pertinent to the patient complaint. Exam Const: General: cooperative, healthy appearing, no acute distress and well nourished Nutritional Appearance: well nourished Orientation/consciousness: patient oriented x3 Limitations: no limitations HENMT: Head: normal to inspection and normocephalic Ears: external ears normal, TM's normal bilaterally, mastoids normal and Abnormal EAC present Face/Nose/Sinus: normal facial exam Face and sinus: normal facial exam Mouth: Yes Normal oral and palatal mucosa present, Yes oropharynx normal and Yes moist mucous membranes Throat: posterior oropharynx normal, tonsils normal, uvula midline and no uvular edema Eyes: General: appearance normal, both eyes and all related structures Sclera: sclerae normal Pupils: Equal, round and reactive pupils present Resp: Effort & Inspection: nor
[2023-01-30 14:01] VITALS: BP 159/66; PULSE 84; RESP 14; TEMP 36.3; O2SAT 99
== END 2023-01-30 14:35 | disposition home or self-care (01) ==
PROVIDERS: Emergency Provider Registered Nurse; PCP Emergency Medicine
DX: U07.1 COVID-19 (principal); Z87.891 Personal history of nicotine dependence; M19.90 Unspecified osteoarthritis, unspecified site; I10 Essential (primary) hypertension; Z86.718 Personal history of other venous thrombosis and embolism; Z86.711 Personal history of pulmonary embolism
CPT/HCPCS: 71046; 87426; 87804; 99213; C9803; G0463

== ENCOUNTER 2023-03-07 09:26 | Outpatient (NON) | payer MEDICARE, BC, SELFPAY ==
[2023-03-07 20:23] LABS: Creatinine Urine 99.6 mg/dL
[2023-03-07 20:32] LABS: Total Protein Urine Random < 5 mg/dL; Ur Ttl Prot Creatinine Ratio < 0.05 mg/mg (0-0.20)
[2023-03-12 01:26] LABS: Creatinine, Random Urine 100 mg/dL (20-275); Total Protein/Creatinine Ratio 60 mg/g creat (24-184)
== END 2023-03-07 09:27 | disposition home or self-care (01) ==
PROVIDERS: PCP Emergency Medicine; Visit Provider Internal Medicine Nephrology
DX: I12.9 Hypertensive chronic kidney disease with stage 1 through stage 4 chronic kidney disease, or unspecified chronic kidney disease (principal); N18.32 Chronic kidney disease, stage 3b
CPT/HCPCS: 82570; 84156; 84166

== ENCOUNTER 2023-03-08 11:15 | Outpatient (CLI) | payer MEDICARE, BC, SELFPAY ==
[2023-03-08 13:26] LABS: Albumin Level 3.7 g/dL (3.5-5.1); Anion Gap 7 mmol/L (8-16); Blood Urea Nitrogen 19 mg/dL (7-17); Calcium 9.9 mg/dL (8.4-10.2); Carbon Dioxide 29 mmol/L (22-30); Chloride 104 mmol/L (98-107); Estimated Glomerular Filt Rate 51; Glucose 105 mg/dL (65-110); Phosphorus 2.8 mg/dL (2.5-4.5); Potassium 3.8 mmol/L (3.4-5.0); Sodium 140 mmol/L (137-145)
[2023-03-08 13:43] LABS: Complement C3 129 mg/dL (88-165)
[2023-03-08 13:53] LABS: Thyroid Stimulating Hormone 0.304 uIU/mL (0.465-4.680)
[2023-03-08 14:15] LABS: Free T4 Free Thyroxine 1.35 ng/mL (0.78-2.19)
[2023-03-10 17:18] LABS: Albumin 3.5 g/dL (3.8-4.8); Alpha 1 Globulin 0.3 g/dL (0.2-0.3); Alpha 2 Globulin 0.8 g/dL (0.5-0.9); Beta 1 Globulin 0.5 g/dL (0.4-0.6); Gamma Globulin 1.2 g/dL (0.8-1.7); Protein, Total 6.7 g/dL (6.1-8.1)
[2023-03-10 19:49] LABS: Anti Glomerular Basement Memb <1.0 AI (<1.0)
[2023-03-13 22:06] LABS: ANCA Screen Negative (Negative)
== END 2023-03-08 11:16 | disposition home or self-care (01) ==
PROVIDERS: PCP Emergency Medicine; Visit Provider Internal Medicine Endocrinology, Diabetes & Metabolism
DX: E04.9 Nontoxic goiter, unspecified (principal); E05.90 Thyrotoxicosis, unspecified without thyrotoxic crisis or storm; E83.52 Hypercalcemia; I12.9 Hypertensive chronic kidney disease with stage 1 through stage 4 chronic kidney disease, or unspecified chronic kidney disease; N18.32 Chronic kidney disease, stage 3b
CPT/HCPCS: 36415; 80069; 83520; 84155; 84165; 84439; 84443; 84481; 86036; 86038; 86160

== ENCOUNTER 2023-07-26 11:29 | Outpatient (CLI) | payer MEDICARE, BC, SELFPAY ==
[2023-07-26 13:07] LABS: Albumin Level 4.1 g/dL (3.5-5.1); Anion Gap 3 mmol/L (4-12); Blood Urea Nitrogen 13 mg/dL (7-17); Carbon Dioxide 30 mmol/L (22-30); Chloride 106 mmol/L (98-107); Estimated Glomerular Filt Rate 57; Glucose 93 mg/dL (65-110); Phosphorus 2.8 mg/dL (2.5-4.5); Potassium 3.8 mmol/L (3.4-5.0); Sodium 139 mmol/L (137-145)
[2023-07-26 13:14] LABS: Parathyroid Intact 128.8 pg/mL (7.5-53.5)
[2023-07-26 13:42] LABS: Vitamin D 25 Hydroxy 78.6 ng/mL
[2023-07-26 17:40] LABS: Creatinine Urine 76.8 mg/dL; Total Protein Urine Random 7 mg/dL; Ur Ttl Prot Creatinine Ratio 0.09 mg/mg (0-0.20)
== END 2023-07-26 11:30 | disposition home or self-care (01) ==
PROVIDERS: PCP Emergency Medicine; Visit Provider Internal Medicine Nephrology
DX: N25.81 Secondary hyperparathyroidism of renal origin (principal); E55.9 Vitamin D deficiency, unspecified; I12.9 Hypertensive chronic kidney disease with stage 1 through stage 4 chronic kidney disease, or unspecified chronic kidney disease; N18.31 Chronic kidney disease, stage 3a
CPT/HCPCS: 36415; 80069; 82306; 82570; 83970; 84156